=== PATIENT | male | born 1955 | race Caucasian/White ===

== ENCOUNTER 2016-11-13 12:46 | Observation (INO) | payer OTHER ==
--- NOTE | ~2016-11-13 | CO ---
Unit #: [id number] #: [id number] Patient: DONNA VELA [id number] [address] [place], [place] [address] [id number] I MR#: [id number] NAME: DONNA VELA ROOM: 574 Age: 60 Sex: M Admission Date: 11/13/2016 : 1955 Attending Physician: Nai Keenna M.D. Primary Care Physician: No Primary Care Physician Consultation Date: 11/13/2016 CONSULTATION REPORT REASON FOR CONSULTATION Upper GI bleed. HISTORY Mr. Vela is a 60-year-old white gentleman who has multiple medical problems as enumerated under the past medical history. The patient presented with coffee ground emesis, followed by black tarry stool that started yesterday. He also complains of some postural (1) dizziness, and palpitations. He is on long-term Plavix due to recurrent WA and stent closure. There is no history of true syncope. The patient denies any fever, chills or rigors. He has never had any examination of his upper GI tract or colon in the past. PAST MEDICAL HISTORY Significant for history of hypertension, coronary artery disease, diabetes. The patient has had multiple MIs and coronary stent placements and occlusions on long-term Plavix. PAST SURGICAL HISTORY Previous surgeries included a PTCA and cardiac stent placement. MEDICATIONS His medications prior to admission included the following: Plavix, Singulair, DuoNeb, vitamins, Symbicort, Norvasc, aspirin, Cialis, lisinopril, hydrochlorothiazide, and p.o. glitazone, Lipitor and metoprolol. SOCIAL HISTORY He lives at home with his . Does not smoke or drink alcohol. FAMILY HISTORY Significant for coronary artery disease in both parents. REVIEW OF SYSTEMS A detailed review of organ system does not reveal any recent weight loss. No history of fevers, chills or rigors. No history of headaches, seizures, chest pain or syncope. No history of cough or expectoration. No history of dysuria, hematuria or pyuria. No history of focal seizures or extreme weakness. PHYSICAL EXAMINATION GENERAL: He is alert, oriented, comfortable and appears obese. VITAL SIGNS: Are stable with a temperature of 97.8, pulse 91 per minute, respiratory rate 17, and blood pressure is 121/60. He weighs 300 pounds. Unit #: [id number] #: [id number] Patient: DONNA VELA His baseline weight in the past has been recorded as around 270 to 280 pounds in the past. HEENT: He has a no pallor, icterus, lymphadenopathy or peripheral edema. CARDIOVASCULAR: Normal heart sounds. No murmurs on auscultation. LUNGS: Bilaterally symmetric diminished air entry. ABDOMEN: Obese, firm and nontender. Liver and spleen are not palpable. Any kind of meaningful palpation is difficult to do (2) . Bowel sound are dillon. Hernia sites are also normal. DIAGNOSTIC STUDIES LABORATORY EVALUATION: Shows a hemoglobin of 13.3, but normal white count and platelet count. INR is 1.0. Serum chemistry shows a BUN and creatinine of 66 and 1.6 and calcium of 10.3. LFT is otherwise normal. Patient with history suggestive of upper GI bleed. His BUN and creatinine ratio is elevated and it is possible that the drop in hemoglobin will be in apparent in the next few hours after hemodilutions occurred. An upper endoscopy, however, indicated to be scheduled shortly. Pros and cons of procedure, potential risk of complication were discussed with the patient and his family and they seem reassured. Thank you very much for asking me to see this pleasant gentleman. Dictated by... Charlene Gupta TD: 11/14/2016 06:57 JOB #: [id number] CONSULTATION REPORT X Saulo Gil MD X CONSULTATION REPORT
--- NOTE | ~2016-11-13 | HP ---
Unit #: [id number] #: [id number] Patient: DONNA VELA [id number] [address] [address] [id number] E MR#: [id number] NAME: DONNA VELA ROOM: Age: 60 Sex: M Admission Date: 11/13/2016 : 1955 Attending Physician: Vilma Mares M.D. HISTORY AND PHYSICAL CHIEF COMPLAINT Coffee-ground emesis. HISTORY OF PRESENT ILLNESS The patient is a 60-year-old male with a history of diabetes, coronary artery disease, status post stents, on aspirin and Plavix, and morbid obesity, brought to the emergency room complaining of coffee-ground emesis since last midnight. The patient stated that he has coffee-ground emesis associated with dark tarry stool that started last midnight. The patient also complains of dizziness, confusion, and palpitations. The patient has been on Plavix for many years secondary to recurrent MIs with stent closures. The patient denies any fever, chills, or any trauma. The patient has never had any upper or lower endoscopies in the past. PAST MEDICAL HISTORY 1. Hypertension. 2. Coronary artery disease. 3. Diabetes. PAST SURGICAL HISTORY Cardiac stents. ALLERGIES No known drug allergies. HOME MEDICATIONS 1. Pioglitazone. 2. Lisinopril and hydrochlorothiazide. 3. Lipitor. 4. Metoprolol. 5. Plavix. 6. Singulair. 7. DuoNeb. 8. Vitamin. 9. Symbicort. 10. Norvasc. 11. Aspirin. 12. Cialis. SOCIAL HISTORY He lives with his . Denies any history of tobacco, alcohol, or any illicit drug abuse. FAMILY HISTORY Unit #: [id number] #: [id number] Patient: DONNA VELA Coronary artery disease in the parents. REVIEW OF SYSTEMS A 14-point review of systems was performed and only pertinent positive findings are described above. The remaining are negative. PHYSICAL EXAMINATION GENERAL: Patient is alert, awake, oriented, and not in acute distress. VITAL SIGNS: Temperature 97.6, pulse 93, respiratory rate 16, blood pressure 112/65, and saturating 94% on room air. HEENT: Head atraumatic, normocephalic. Pupils equal, round, and reactive to light and accommodation. Extraocular movements are intact. Dry mucous membranes. NECK: Supple. No JVD. LUNGS: Clear to auscultation bilaterally. No rhonchi, no wheezing. HEART: Regular rate and rhythm. ABDOMEN: Soft. Positive bowel sounds. Positive for morbid obesity. EXTREMITIES: No cyanosis, no clubbing. NEUROLOGIC: Alert, awake, and oriented. No gross focal motor deficit. DIAGNOSTIC STUDIES LABORATORY: Glucose 211, BUN 66, creatinine 1.1, sodium 137, potassium 4.1, chloride 99, bicarb 30, calcium 10.3, total protein 7.4, AST 23, ALT 25, and alkaline phosphatase 43. INR is 1. WBC 7.2, hemoglobin 13.3, hematocrit 39.3, and platelets 231,000. CARDIOLOGY: EKG is missing. ASSESSMENT 1. Hematemesis. 2. Gastrointestinal bleed with melena. 3. Diabetes mellitus. 4. Coronary artery disease, status post stents. PLAN Admit patient to observation with telemetry. Continue with Protonix 40 mg b.i.d. IV and will have GI for a scope. Hold aspirin and Plavix today. Repeat the labs again in the morning. Further recommendations will follow. Dictated by Charlene Dowd TD: 11/13/2016 14:03 JOB #: [id number] HISTORY AND PHYSICAL X X HISTORY AND PHYSICAL
--- NOTE | ~2016-11-13 | DS ---
Unit #: [id number] #: [id number] Patient: DONNA VELA [id number] [address] [address] [id number] I MR#: [id number] NAME: DONNA VELA ROOM: 574 Age: 60 Sex: M Admission Date: 11/13/2016 : 1955 Discharge Date: 11/15/2016 Attending Physician: Ervin Beaver M.D. Primary Care Physician: Primary Care Physician No DISCHARGE SUMMARY DISCHARGE DIAGNOSES 1. Hematemesis with likely gastrointestinal bleed, status post esophagogastroduodenoscopy and endoscopy by Dr. Gil without evidence of active bleeding. 2. Type 2 diabetes. 3. History of coronary artery disease. 4. Chronic obstructive pulmonary disease without acute exacerbation. 5. Essential hypertension. PROCEDURES The patient had EGD on 11/13/[address] Gil and colonoscopy on 11/15/2016. DIAGNOSTIC STUDIES IMAGING STUDIES: Consist of none during this admission. LABORATORY RESULTS: Includes BMP; glucose 187, BUN 45, creatinine 1.0, sodium 140, potassium 3.7, chloride 104, CO2 of 29, calcium 9.0. CBC; WBC of 6.7, RBC 3.07, hemoglobin 10.3, hematocrit 30.2, MCV is 98.3, MCH is 33.5, MCHC is 34.1, RDW is 14.4, platelets are 142, and MPV 8.4. CONSULTANTS Dr. Gil with Gastroenterology. HOSPITAL COURSE The patient is a 60-year-old male with past medical history of type 2 diabetes; coronary artery disease, status post stent placement, on aspirin and Plavix; morbidly obese, presented to the emergency department for coffee ground emesis, which started midnight on the day of admission. The patient states that he has had coffee ground emesis associated with black tarry stool, that started the midnight prior to admission. The patient also had complained of dizziness, confusion, palpations. The patient has been on Plavix The patient has not had any upper or lower endoscopy in the past. The patient was admitted for likely upper GI bleed with hematemesis, was given Protonix IV. Held aspirin and Plavix. Dr. Gil with Gastroenterology was consulted to did the same day upper endoscopy, where he found portal hypertensive gastropathy involving the fundic mucosa primarily and the reticular appearance of the mucosa of fundus, moderate diffuse erosive duodenitis involving the duodenal bulb. The rest of the exam up to the third part of duodenum was normal. A biopsy was obtained from the antrum and which was negative for CLOtest. The following day, the patient had colonoscopy, where Dr. Gil has seen Unit #: [id number] #: [id number] Patient: DONNA VELA two polyps, which were removed. The patient at this time is stable with regards to the patient's GI bleed, this is quite stable. His hemoglobin when the patient came in was at 13.3 and right now it is 10.3 likely due to delusional effect. Hematocrit came in at 39.3, discharge at 30.2. Due to the patient's resolved symptoms of anemia and a stable H and H with no acute GI bleeding found on endoscopy, the patient will be discharged home in stable condition. The patient is to follow up with family doctor within 1 to [address] Gil. Discharge diet is heart healthy with consistent carb diet. DISCHARGE MEDICATIONS Includes Symbicort one puff inhaled b.i.d., DuoNeb inhaled every 4 hours as needed for shortness of breath and/or wheezing, lisinopril with hydrochlorothiazide 20 with 12.5 mg one tablet orally daily, pioglitazone 45 mg orally daily, atorvastatin 80 mg orally daily, Norvasc 10 mg orally daily, metoprolol 10 mg orally daily, Singulair 10 mg orally daily. Aspirin and Plavix may be resumed. Aspirin 81 mg orally daily may be resumed tomorrow, 11/16/2016, Plavix 75 mg orally daily may be resumed tomorrow, 11/16/[address] Gil's recommendations. Protonix 40 mg orally b.i.d., vitamin D 1000 units orally daily. Dictated by.Charli. Kenneth Stinson PA-C for Charlene Correia/lashonda TD: 11/18/2016 12:48 JOB #: [id number] DISCHARGE SUMMARY X X DISCHARGE SUMMARY
--- NOTE | ~2016-11-13 | OR ---
Unit #: [id number] #: [id number] Patient: DONNA VELA [id number] [address] [address] [id number] I MR#: [id number] NAME: DONNA VELA ROOM: 574 Date of Procedure: 11/15/2016 Admission Date: 11/13/2016 Surgeon: Saulo Gil M.D. : 1955 Attending Physician: Ervin Beaver M.D. Primary Care Physician: Primary Care Physician No OPERATIVE REPORT ATTENDING PHYSICIAN Dr. Ervin Beaver. PREOPERATIVE DIAGNOSES The patient presented with history of hematemesis and melena as well as anemia of acute gastrointestinal blood loss. PROCEDURES PERFORMED Push enteroscopy to proximal jejunum as well as colonoscopy and polypectomy. POSTOPERATIVE DIAGNOSES For push enteroscopy: The patient had mild antral gastritis. This has been observed earlier, otherwise examination was normal up to proximal jejunum. No angiodysplasias or potential source of blood loss were seen. For upper endoscopy: The patient had evidence of distal erosive esophagitis as well as antral gastritis; however, no biopsies were obtained as these has been done before. For colonoscopy: 1. The patient had two sessile polyps, one each in the transverse and descending colon. These were 6 mm and 8 mm each. Both were removed using snare polypectomy. 2. Moderate sigmoid and descending colon diverticulosis. 3. Rest of the examination up to cecum and terminal ileum was normal. The quality of the prep was excellent. RECOMMENDATIONS The patient can be discharged home from GI standpoint on omeprazole or pantoprazole. The results of the polyp histology will be communicated to the patient. He should stay on pantoprazole at least once a day on daily basis. He can restart his Plavix tomorrow. SEDATION USED MAC. DESCRIPTION OF PROCEDURE Following detailed explanation of the potential risks and complications of an upper endoscopy, push enteroscopy, and colonoscopy namely perforation, bleeding, and complication related to sedation, the patient was brought to GI lab and laid in the left lateral decubitus position. A pediatric Unit #: [id number] #: [id number] Patient: DONNA VELA colonoscope was used for push enteroscopy. Lubricated tip of the Olympus video upper endoscope was inserted through the oral cavity into the esophagus. The entire esophageal mucosa was examined. The patient was noted to have distal erosive esophagitis of grade 2 severity. The scope was then advanced into the gastric cavity and the latter was insufflated. Mucosa of the fundus, body, and antrum was examined and prepyloric antral erosive gastritis was also noted. The changes were diffuse in this area. Pylorus was intubated with visualization of the normal duodenal bulb. The scope was then navigated from the duodenum into the proximal jejunum and couple of jejunal loops were intubated. No angiodysplasias were seen. The scope was then withdrawn in the antrum and retroverted, whereupon incisura, cardia, and greater curve was examined and no additional findings were found. The scope was then withdrawn in the distal esophagus. The entire esophageal mucosa was examined all the way up to pharynx. No additional findings were noted. The examination table was then turned by 180 degrees and the patient positioned for a colonoscopy. A digital rectal examination was performed, which was normal. Lubricated tip of the Olympus video colonoscope was inserted through the anus and advanced under direct vision. The scope was advanced past rectosigmoid into descending colon. Multiple medium-sized diverticula were seen in this area. The scope tip was then navigated all the way up to cecum with visualization of the ileocecal valve and the appendiceal orifice. Preparation was excellent with good visualization and photodocumentation was obtained. Last few inches of the terminal ileum were also visualized after intubation of the ileocecal valve and appeared normal. Successive segments of the colonic mucosa were examined upon withdrawal. Two sessile polyps were noted, one each in the transverse and descending colon. These were 6 and 8 mm each. Both were removed using snare polypectomy. They were retrieved and sent for histology. No additional polyps were noted. Other than the left-sided diverticulosis, no other abnormalities were found. The patient did not have any hemorrhoids at anal verge. The scope was then withdrawn and the patient returned to the recovery area. He tolerated the procedure without any postprocedure complications. Dictated byCharlene Newsome TD: 11/15/2016 17:12 JOB #: [id number] OPERATIVE REPORT X Saulo Gil MD PROCEDURE OPERATIVE NOTE
--- NOTE | ~2016-11-13 | EKG ---
PATIENT: DONNA VELA UNIT #: [id number] Ventricular Rate: 91 BPM Atrial Rate: 91 BPM P-R Interval: 158 ms QRS Duration: 100 ms Q-T Interval: 374 ms QTC Calculation(Bezet): [address]: 45 degrees Calculated R [address]: -32 degrees Calculated T [address]: 9 degrees Diagnosis Line: Sinus rhythm with Premature ventricular complexes Diagnosis Line: Left axis deviation Diagnosis Line: Abnormal ECG Diagnosis Line: When compared with ECG of 13-AUG-2011 13:00, Diagnosis Line: Premature ventricular complexes are now Present Diagnosis Line: QT has lengthened Diagnosis Line: Confirmed by ROBERT LLOYD MD ([id number]) on 11/13/2016 Diagnosis Line: 6:22:47 PM INTERPRETING MD: GABINO BAKER
--- NOTE | ~2016-11-13 | OR ---
Unit #: [id number] #: [id number] Patient: DONNA VELA [id number] [place], [place] [address] [id number] I MR#: [id number] NAME: DONNA VELA ROOM: 574 Date of Procedure: 11/13/2016 Admission Date: 11/13/2016 Surgeon: Saulo Gil M.D. : 1955 Attending Physician: Ervin Beaver M.D. Primary Care Physician: Primary Care Physician No OPERATIVE REPORT PRIMARY CARE PHYSICIAN None. PREOPERATIVE DIAGNOSES Presumed upper gastrointestinal bleed. The patient has had a history of vomiting blood and having tarry black stools. PROCEDURES PERFORMED Upper gastrointestinal endoscopy and biopsy. POSTOPERATIVE DIAGNOSES 1. Distal erosive esophagitis. 2. Changes of portal hypertensive gastropathy involving the fundic mucosa. These were primarily in the reticular appearance of the mucosa of the fundus. 3. Moderate diffuse erosive duodenitis involving the duodenal bulb. 4. Rest of the examination up to third part of duodenum was normal. Biopsies obtained from the antrum for CLOtest. RECOMMENDATIONS 1. Monitor hemoglobin and hematocrit. Consider need for colonoscopy depending upon the hemoglobin drop tomorrow. 2. Discontinue Protonix infusion after the current bag is finished or runs out. 3. Protonix 40 mg p.o. b.i.d. 4. Healthy heart diet. Repeat CBC and CMP in the morning. SEDATION USED MAC. DESCRIPTION OF PROCEDURE Following detailed explanation of potential risks and complications of an upper endoscopy and a colonoscopy, namely perforation, bleeding, and complications related to sedation, the patient was brought to GI lab and laid in the left lateral decubitus position. Lubricated tip of the Olympus video upper endoscope was passed through the bite block into the proximal esophagus under direct vision. The entire esophageal mucosa was examined. The patient was noted to have distal confluent ulcerative esophagitis of grade 2 severity. The scope was then advanced into the gastric cavity and the latter was insufflated. Mucosa of the fundus, body, and antrum was examined. Changes of portal hypertensive gastropathy Unit #: [id number] #: [id number] Patient: DONNA VELA were noted in the fundic mucosa, which was edematous with reticular appearance of the mucosa; however, no varices were seen. The prepyloric antral area appeared normal. Pylorus was intubated with visualization of the duodenal bulb. The latter was noted to have moderate and diffuse erosive duodenitis. Second and third part of duodenum were normal. Upon withdrawal and retroflexion, incisura, cardia, and greater curve examined and no additional findings noted. The scope was then withdrawn in the distal esophagus. The biopsy obtained from the antrum for CLOtest. The scope was then withdrawn in the distal esophagus. The entire esophageal mucosa was examined all the way up to pharynx. No additional findings noted. The patient tolerated the procedure without any postprocedure complications. Dictated by... Charlene Gupta TD: 11/14/2016 06:17 JOB #: [id number] OPERATIVE REPORT X Saulo Gil MD X PROCEDURE OPERATIVE NOTE
--- NOTE | ~2016-11-13 | BMI ---
[facility] Nutrition Therapy DATE: 11/14/16 Patient: DONNA VELA Physician: JOSE Address: [facility] Room/Bed: [address] [place] [address], Zip: [place] [address] Admit Date: 11/13/16 Date of : [birth year] Height: 5 8 Weight: 306 139 HIGH BMI NOTE: DX: 60 y/o male admitted with coffee ground emesis ANTHROPOMETRICS: Ht: 68", Wt: 139 kg, BMI: 45 DIET: Clear liquid INTERVENTION: Advance diet as tolerated, meds/fluids per MD RECOMMENDATIONS: Advance diet as tolerated to healthy heart/consistent carb due to PMH and morbid obesity, to promote a gradual weight loss towards a healthy BMI range. Respectfully, Maria Jaffe RD, LD Food and Nutritional Services [facility] cc: client file
[2016-11-13 12:16] LABS: BASOPHIL# 0.1 X10e3 (0-0.3); BASOPHIL% 0.7 % (0-2.5); EOSINOPHIL% 0.5 % (0.0-7.0); HEMATOCRIT 39.3 % (38.0-50.0); HEMOGLOBIN 13.3 gm/dL (13.0-16.0); LYMPHOCYTE# 1.9 X10e3 (1.0-3.5); LYMPHOCYTE% 26.7 % (17.0-45.0); MEAN CELL VOLUME 97.6 FL (83-96); MEAN CORPUSCULAR HEMOGLOBIN 33.1 PG (28-34); MEAN CORPUSCULAR HGB CONC 33.9 g/dL (30-36); MEAN PLATELET VOLUME 8.6 FL (6.5-11.5); MONOCYTE# 0.3 X10e3 (0-1.0); MONOCYTE% 4.4 % (3.0-12.0); NEUTROPHIL# 4.9 X10e3 (1.5-7.1); NEUTROPHIL% 67.7 % (40-75); PLATELET COUNT 231 X10e3 (140-420); RED BLOOD COUNT 4.02 X10e (3.90-5.60); RED CELL DISTRIBUTION WIDTH 14.3 % (11.0-15.5); WHITE BLOOD COUNT 7.2 X10e3 (4.0-10.5)
[2016-11-13 12:18] LABS: DIFF IND NO
[2016-11-13 12:29] LABS: PARTIAL THROMBOPLASTIN TIME 22.8 SECONDS (23.5-31.3)
[2016-11-13 12:45] LABS: ALBUMIN SERUM 3.7 g/dL (3.5-5.0); ALKALINE PHOSPHATASE 43 U/L (32-92); ALT (SGPT) 25 U/L (10-40); AST (SGOT) 23 U/L (10-42); BILIRUBIN, DIRECT 0.1 mg/dL (0.0-0.2); BILIRUBIN,TOTAL 1.1 mg/dL (0.2-2.0); BLOOD UREA NITROGEN 66 mg/dL (9-23); CALCIUM SERUM 10.3 mg/dL (8.4-10.2); CARBON DIOXIDE 30 mmol/L (22-31); CHLORIDE 99 mmol/L (100-111); CREATININE SERUM 1.1 mg/dL (0.6-1.4); GLOM FILT RATE Estimated ABOVE60 mL/min (>60); GLUCOSE FASTING 211 mg/dL (70-110); POTASSIUM 4.1 mmol/L (3.5-5.1); PROTEIN TOTAL SERUM 7.4 g/dL (6.0-8.3); SODIUM 137 mmol/L (135-145)
[~2016-11-13 12:46] MED LIST: ALBUTEROL17 G1 IH; ASPIRIN81 M2 PO; ATORVASTATIN CA80 MG PO; CIALIS5 MG PO; CLOPIDOGREL75 MG PO; ECOTRIN81 M1 PO; GLIMEPIRIDE2 MG PO; GLUCOPHAGE500 MG PO; IPRAT-ALBUT 0.5-3 ML INH; LISINOPRIL-HCTZ1 T14 PO; METOPROLOL SUC100 MG PO; NORVASC10 MG PO; PIOGLITAZONE45 MG PO; PLAVIX PO; PREDNISONE PO; PROVENTIL17 GM IH; SIMVASTATIN80 MG PO; SINGULAIR PO; SYMBICORT INH; TOPROL XL100 MG PO; VITAMIN D1000 UNI1 PO; ZESTORETIC 20/11 TAB PO; [UNRECOGNIZED DRUG - REMARK]
[2016-11-13 14:32] LABS: URINE SOURCE CLEAN CATCH
[2016-11-13 14:37] LABS: URINE APPEARANCE CLEAR; URINE BILIRUBIN NEG (NEG); URINE BLOOD NEG (NEG); URINE COLOR YELLOW; URINE GLUCOSE NEG (NEG); URINE KETONE NEG (NEG); URINE LEUKOCYTE ESTERASE NEG (NEG); URINE NITRATE NEG (NEG); URINE PROTEIN NEG (NEG); URINE SPECIFIC GRAVITY 1.021 (1.003-1.035); URINE UROBILINOGEN 0.2 MG/DL (NEG)
[2016-11-13 14:41] LABS: CULTURE INDICATED? NO
[2016-11-14 05:27] LABS: BASOPHIL% 0.7 % (0-2.5); EOSINOPHIL# 0.1 X10e3 (0-0.7); EOSINOPHIL% 1.8 % (0.0-7.0); LYMPHOCYTE# 1.7 X10e3 (1.0-3.5); LYMPHOCYTE% 23.4 % (17.0-45.0); MEAN CELL VOLUME 97.4 FL (83-96); MEAN CORPUSCULAR HGB CONC 34.9 g/dL (30-36); MEAN PLATELET VOLUME 8.7 FL (6.5-11.5); MONOCYTE# 0.6 X10e3 (0-1.0); MONOCYTE% 7.6 % (3.0-12.0); NEUTROPHIL% 66.5 % (40-75); PLATELET COUNT 155 X10e3 (140-420); RED BLOOD COUNT 3.18 X10e (3.90-5.60); RED CELL DISTRIBUTION WIDTH 14.4 % (11.0-15.5); WHITE BLOOD COUNT 7.5 X10e3 (4.0-10.5)
[2016-11-14 05:29] LABS: DIFF IND NO; HEMOGLOBIN 10.8 gm/dL (13.0-16.0)
[2016-11-14 05:56] LABS: BLOOD UREA NITROGEN 45 mg/dL (9-23); CARBON DIOXIDE 29 mmol/L (22-31); CHLORIDE 104 mmol/L (100-111); GLOM FILT RATE Estimated ABOVE60 mL/min (>60); GLUCOSE FASTING 187 mg/dL (70-110); POTASSIUM 3.7 mmol/L (3.5-5.1); SODIUM 140 mmol/L (135-145)
[2016-11-14] MEDS ORDERED: PROTONIX PO (11:46)
[2016-11-14 12:30] LABS: HEMATOCRIT 30.2 % (38.0-50.0); HEMOGLOBIN 10.3 gm/dL (13.0-16.0); MEAN CELL VOLUME 98.3 FL (83-96); MEAN CORPUSCULAR HEMOGLOBIN 33.5 PG (28-34); MEAN CORPUSCULAR HGB CONC 34.1 g/dL (30-36); MEAN PLATELET VOLUME 8.4 FL (6.5-11.5); RED BLOOD COUNT 3.07 X10e (3.90-5.60); RED CELL DISTRIBUTION WIDTH 14.4 % (11.0-15.5); WHITE BLOOD COUNT 6.7 X10e3 (4.0-10.5)
[2016-11-15] MEDS ORDERED: CLOPIDOGREL75 MG PO (15:04)
== END 2016-11-15 15:44 | disposition home or self-care (01) ==
LOC: CED 12:46 → CEDOF 13:59 → C5C 16:32
PROVIDERS: Emergency Medicine; Internal Medicine; Internal Medicine Gastroenterology
DX: K92.0 Hematemesis (principal); D62 Acute posthemorrhagic anemia; K20.8 Other esophagitis; K76.6 Portal hypertension; K31.89 Other diseases of stomach and duodenum; K29.80 Duodenitis without bleeding; K92.1 Melena; D12.3 Benign neoplasm of transverse colon; D12.4 Benign neoplasm of descending colon; K57.30 Diverticulosis of large intestine without perforation or abscess without bleeding; I10 Essential (primary) hypertension; I25.10 Atherosclerotic heart disease of native coronary artery without angina pectoris; Z95.5 Presence of coronary angioplasty implant and graft; E11.9 Type 2 diabetes mellitus without complications
CPT/HCPCS: 36415; 80048; 80076; 81003; 82947; 85025; 85027; 85610; 85730; 86850; 86900; 86901; 87077; 88305; 93005; 94640; 94664; 94760; 96361; 96374; 96376; 99285; C9113; G0378; J1815; J2250; J3490

== ENCOUNTER 2017-04-13 15:13 | Emergency (ER) | payer OTHER ==
--- NOTE | ~2017-04-13 | CT122 ---
[facility] A Service of [facility] RADIOLOGY TEXT RESULTS PATIENT: DONNA VELA LOCATION: SED : 53 UNIT #: [id number] AGE: [address]: Migdalia Feng SEX: M ORDER DR: [id number] [address] [address] [id number] MR#: [id number] Acc #: [id number] NAME: DONNA VELA : 1955 SEX: M STUDY DATE/TIME: 04/13/2017 17:35 UNIT: SED ROOM: STUDY DESCRIPTION: CT Thoracic Spine Wo Cont Attending Physician: Migdalia Feng Pa-C Ordering Physician: Migdalia Feng Pa-C Primary Care Physician: Primary Care Physician No MEDICAL IMAGING REPORT This report is preliminary unless electronic signature is present. EXAM CT of the thoracic spine without contrast dated 04/13/2017 COMPARISON Plain forms thoracic spine dated 04/13/2017. HISTORY Abnormal plain film with compression fractures. Mid back pain for 2 months, worse in the last [address] of the thoracic spine was obtained without contrast in the axial plane followed by sagittal and coronal reformats. This CT examination was performed with one or more of the following radiation dose reduction techniques: automatic exposure control, adjustment of mA and/or kV according to patient size, and iterative reconstruction. Compression fractures are noted at T5 and T7 vertebral bodies with maximal vertebral body height loss of 50% to 55% at T5 and 70% to 75% at T7. These images are more sensitive and specific when compared to the plain films. No retropulsion of fragments are noted into the canal. No obvious acute fracture line or displaced fragments are seen. It appears to be predominantly chronic. No significant paraspinal hematoma is seen. Degenerative mild facet changes are noted. No focal significant disc herniation or canal stenosis is noted in the thoracic spine. There are mild facet changes and costovertebral changes noted particularly at T7-8. There is mild bony irregularity noted along the posterior right eighth rib at the costal vertebral joint. It has a chronic appearance and could be related to old trauma. Surrounding lungs do not demonstrate any significant abnormality. IMPRESSION 1. Compression fractures are noted at T5 with 50% to 55% maximal mid STS. [facility] A Service of [facility] & [facility] RADIOLOGY TEXT RESULTS PATIENT: DONNA VELA LOCATION: [facility] : 53 UNIT #: [id number] AGE: [address]: Migdalia Feng PAC SEX: M ORDER DR: vertebral body height loss and at T7 with 70% to 75% maximal mid vertebral body height loss. These appear to be predominantly chronic without any obvious fracture lines, displaced fragments or adjacent surrounding hematoma. MRI of the thoracic spine can be considered for management purposes to evaluate for bone edema to suggest an acute on chronic component. 2. The upper thoracic vertebral bodies including T2 do not demonstrate any compression deformity. Minimal superior endplate compression deformity of T7 is suspected based on the reformats. 3. There is mild bony irregularity noted in the posterior segment of the right eighth rib close the costal vertebral joint. It is likely related to old trauma. 4. Mild facet changes are noted at multiple levels particularly in bilateral T7-8 and in costovertebral joints particularly right T7-8 joints. Chronic. Dictated by... Junito Pan M.D. THIS IS AN ELECTRONICALLY VERIFIED REPORT Junito Pan M.D. at 04/14/2017 7:33 PM CPR/lonnie TD: 04/14/2017 07:25 JOB #: [id number] MEDICAL IMAGING REPORT Page 1 of 1
--- NOTE | ~2017-04-13 | CR243 ---
[facility] A Service of [facility] RADIOLOGY TEXT RESULTS PATIENT: DONNA VELA LOCATION: SED : 54 UNIT #: [id number] AGE: [address]: Migdalia Feng SEX: M ORDER DR: [id number] [place] [id number] E MR#: [id number] Acc #: [id number] NAME: DONNA VELA : 1955 SEX: M STUDY DATE/TIME: 04/13/2017 16:02 UNIT: SED ROOM: STUDY DESCRIPTION: CR Thoracic Spine 3 Views Attending Physician: Migdalia Feng Pa-C Ordering Physician: Migdalia Feng Pa-C Primary Care Physician: Primary Care Physician No MEDICAL IMAGING REPORT This report is preliminary unless electronic signature is present. EXAM Thoracic spine series, 04/13/2017 COMPARISON None. HISTORY Mid back pain, cough which is worse in the past 2 weeks. It has been going on for 2 months. Back pain and high blood pressure. FINDINGS 3 views of the thoracic spine were obtained. There appear to be two compression deformities in the thoracic spine, probably involving T7 and T5 with maximal vertebral body height loss of about 80% at T7 and 60-65% at T5. A compression deformity at the level of T12 vertebral body cannot be excluded based on the lateral view. It is not clearly seen on the frontal view. The images are limited at this level. There are no prior thoracic spine studies but a CT angiogram head and neck from 08/13/2011 did not demonstrate any severe compression. Large calcified lymph nodes are noted in the right superior mediastinum and in the right hilum suggestive of old granulomatous disease. There is diffuse bony osteopenia. Dictated by... Junito Pan M.D. THIS IS AN ELECTRONICALLY VERIFIED REPORT Junito Pan M.D. at 04/14/2017 7:33 PM CPR/ljyelena TD: 04/14/2017 04:32 [facility] A Service of [facility] RADIOLOGY TEXT RESULTS PATIENT: DONNA VELA LOCATION: SED : 54 UNIT #: [id number] AGE: [address]: Migdalia Feng PAC SEX: M ORDER DR: ANABEL #: [id number] MEDICAL IMAGING REPORT Page 1 of 1
--- NOTE | ~2017-04-13 | CR63 ---
[facility]. [facility] A Service of [facility] RADIOLOGY TEXT RESULTS PATIENT: DONNA VELA LOCATION: SED : 54 UNIT #: [id number] AGE: [address]: Migdalia Feng SEX: M ORDER DR: [id number] [place] [id number] E MR#: [id number] Acc #: [id number] NAME: DONNA VELA : 1955 SEX: M STUDY DATE/TIME: 04/13/2017 16:02 UNIT: SED ROOM: STUDY DESCRIPTION: CR Chest 2 View Attending Physician: Migdalia Feng Pa-C Ordering Physician: Migdalia Feng Pa-C Primary Care Physician: Primary Care Physician No MEDICAL IMAGING REPORT This report is preliminary unless electronic signature is present. EXAM Two-view chest HISTORY Mid-back pain, cough, symptoms for over 2 months but worse over the last 2 weeks. COMPARISON 08/13/2011 FINDINGS 2 views of the chest demonstrates coarse parenchymal markings suggesting underlying interstitial disease and fibrosis. No acute airspace disease or consolidation. No effusions. Right hilar and paratracheal calcifications compatible with old granulomas disease. Mild cardiomegaly and aortic atherosclerotic changes. There are compression fractures T5 and T7 with greater than 50% loss of vertebral body height of both of these fractures. This appears superimposed on osteopenia and these may represent osteoporotic compression fractures. Correlate for risk factors. Minimal degenerative changes noted within the remainder of the thoracic spine. IMPRESSION 1. Diffuse prominence of the pulmonary interstitium with a reticular pattern may reflect chronic interstitial disease and fibrosis. Correlate with history. There is also evidence of old granulomas disease. Clearly no dense airspace disease or consolidation. 2. T5 and T7 thoracic compression fractures with greater than 50% loss of the mid and anterior vertebral body height at both of these levels. I suspect these represent osteoporotic compression fractures as this appears superimposed on osteopenia. Again correlate for risk factors. [facility] A Service of [facility] RADIOLOGY TEXT RESULTS PATIENT: DONNA VELA LOCATION: SED : 54 UNIT #: [id number] AGE: [address]: Migdalia Feng PAC SEX: M ORDER DR: Dictated by... Mary Burk M.D. THIS IS AN ELECTRONICALLY VERIFIED REPORT Mary Burk M.D. at 04/14/2017 7:15 AM John TD: 04/14/2017 04:21 JOB #: [id number] MEDICAL IMAGING REPORT Page 1 of 1
[~2017-04-13 15:13] MED LIST changes: +PROTONIX PO
[2017-04-13] MEDS ORDERED: LASIX (15:58)
[2017-04-13] MEDS ORDERED: ALDACTONE (15:59)
[2017-04-13] MEDS ORDERED: LISINOPRIL (16:00)
[2017-04-13] MEDS ORDERED: METFORMIN (16:00)
[2017-04-13 16:09] LABS: URINE SOURCE CLEAN CATCH
[2017-04-13 16:11] LABS: BASOPHIL# 0.1 X10e3 (0-0.3); BASOPHIL% 1.1 % (0-2.5); EOSINOPHIL# 0.4 X10e3 (0-0.7); HEMATOCRIT 38.1 % (38.0-50.0); HEMOGLOBIN 12.5 gm/dL (13.0-16.0); LYMPHOCYTE# 1.3 X10e3 (1.0-3.5); LYMPHOCYTE% 25.3 % (17.0-45.0); MEAN CELL VOLUME 82.9 FL (83-96); MEAN CORPUSCULAR HEMOGLOBIN 27.2 PG (28-34); MEAN CORPUSCULAR HGB CONC 32.8 g/dL (30-36); MONOCYTE# 0.3 X10e3 (0-1.0); MONOCYTE% 6.5 % (3.0-12.0); NEUTROPHIL% 59.1 % (40-75); PLATELET COUNT 178 X10e3 (140-420); RED BLOOD COUNT 4.59 X10e (3.90-5.60); RED CELL DISTRIBUTION WIDTH 17.7 % (11.0-15.5)
[2017-04-13 16:12] LABS: URINE APPEARANCE CLEAR; URINE BILIRUBIN NEG (NEG); URINE BLOOD NEG (NEG); URINE COLOR YELLOW; URINE GLUCOSE 100 MG/DL (NORM); URINE KETONE NEG (NEG); URINE LEUKOCYTE ESTERASE NEG (NEG); URINE NITRATE NEG (NEG); URINE PROTEIN NEG (NEG); URINE UROBILINOGEN 0.2 MG/DL (NORM)
[2017-04-13 16:14] LABS: MICRO INDICATED? NO
[2017-04-13 16:15] LABS: DIFF IND NO
[2017-04-13 16:29] LABS: ALBUMIN SERUM 3.9 g/dL (3.5-5.0); BILIRUBIN, DIRECT 0.1 mg/dL (0.0-0.2); BILIRUBIN,INDIRECT 0.7 mg/dL (0.0-0.9); BILIRUBIN,TOTAL 0.8 mg/dL (0.2-2.0); CALCIUM SERUM 8.6 mg/dL (8.4-10.2); GLOM FILT RATE Estimated 80.3 mL/min (>60); POTASSIUM 3.9 mmol/L (3.5-5.1); PROTEIN TOTAL SERUM 7.7 g/dL (6.0-8.3)
== END 2017-04-13 19:17 | disposition home or self-care (01) ==
LOC: SED 15:13
PROVIDERS: Physician Assistant Medical
DX: S22.059A Unspecified fracture of T5-T6 vertebra, initial encounter for closed fracture (principal); I25.10 Atherosclerotic heart disease of native coronary artery without angina pectoris; E11.9 Type 2 diabetes mellitus without complications; I11.0 Hypertensive heart disease with heart failure; I50.9 Heart failure, unspecified; W19.XXXA Unspecified fall, initial encounter; Z79.82 Long term (current) use of aspirin; Z79.899 Other long term (current) drug therapy; Z79.4 Long term (current) use of insulin
CPT/HCPCS: 36415; 71020; 72072; 72128; 80048; 80076; 81003; 85025; 99284

== ENCOUNTER → 2017-05-05 | Outpatient (CLI) | payer MEDICARE ==
[~2017-05-05] MED LIST changes: +ALDACTONE; +ALDACTONE25 MG PO; +FUROSEMIDE40 MG PO; +LASIX; +LEVEMIR100 UNITS/ SUBQ; +LISINOPRIL; +METFORMIN; +MONTELUKAST SOD10 MG PO; +POTASSIUM CHLOR8 ME1 PO; +PRINIVIL20 M1 PO; +PROTONIX40 M1 PO; +TYLENOL80 MG/0.2 PO
--- NOTE | ~2017-05-05 | MR176 ---
[facility] A Service of [facility] RADIOLOGY TEXT RESULTS PATIENT: DONNA VELA LOCATION: [facility] : 54 UNIT #: [id number] AGE: [address]: Donna Valladares PA-C SEX: M ORDER DR: [id number] [place] [id number] O MR#: [id number] Acc #: [id number] NAME: DONNA VELA : 1955 SEX: M STUDY DATE/TIME: 05/05/2017 14:56 UNIT: [facility] ROOM: STUDY DESCRIPTION: MR Thoracic Wo Contrast Attending Physician: Donna Valladares P.A.-C. Referring Physician: Donna Valladares P.A.-C. Ordering Physician: Donna Valladares P.A.-C. Primary Care Physician: No Primary Care Physician MRI CENTER REPORT This report is preliminary unless electronic signature is present. EXAM Thoracic spine MRI without contrast. DATE OF STUDY 05/05/2017 PROCEDURE Routine unenhanced thoracic spine MRI. COMPARISON CT thoracic spine, 04/13/2017; date of this exam 05/05/2017. CLINICAL HISTORY Two-month history of worsening back pain, known chronic spinal compression fracture. FINDINGS Spine alignment is normal. There are compression fractures at T5 and T7. The T7 fracture is clearly chronic, with about 75% to 80% height loss and no marrow edema. The T5 fracture appears likely subacute. There is marrow edema throughout the vertebral body and involving the posterior elements. There is slight bony retropulsion with slight central canal compromise, but no cord compression. There is marrow edema in the pedicles and lamina and even spinous process as well. No definite spinous process fracture is seen even in retrospect on the CT exam. No other fractures are seen and the exam is otherwise unremarkable. IMPRESSION 1. T7 fracture is chronic, but T5 fracture is clearly acute or subacute with marrow edema throughout the vertebral body as well as involving [facility] A Service [facility] RADIOLOGY TEXT RESULTS PATIENT: DONNA VELA LOCATION: [facility] : 54 UNIT #: [id number] AGE: [address]: Donna Valladares PA-C SEX: M ORDER DR: the pedicles, lamina and even spinous process. There is slight bony retropulsion of the T5 posterior cortex contacting the ventral cord, but without true canal stenosis or cord compression and there is no abnormal cord signal. 2. Again there is a chronic compression deformity of T7, but no other fractures are seen and the exam is otherwise unremarkable. Dictated by... Garfield Vallejo M.D. THIS IS AN ELECTRONICALLY VERIFIED REPORT Garfield Vallejo M.D. at 05/09/2017 4:52 PM TEV/pc TD: 05/06/2017 11:06 JOB #: [id number] MRI CENTER REPORT Page 1 of 1
== END | disposition home or self-care (01) ==
LOC: SMRI 14:11
DX: M48.54XD Collapsed vertebra, not elsewhere classified, thoracic region, subsequent encounter for fracture with routine healing (principal)
CPT/HCPCS: 72146

== ENCOUNTER 2017-05-28 17:47 | Inpatient (IN) | payer MEDICARE ==
[~2017-05-28] VITALS: Ht 172.7 cm; Wt 126.8 kg
--- NOTE | ~2017-05-28 | CO ---
Unit #: [id number] #: [id number] Patient: DONNA VELA [id number] [facility]. [place] [address] [facility]. [place], [place] [address] [id number] I MR#: [id number] NAME: DONNA VELA. ROOM: 301 Age: 61 Sex: M Admission Date: 05/28/2017 : 1955 Attending Physician: Bo Tsang M.D. Consultation Date: 05/29/2017 CONSULTATION REPORT REASON FOR CONSULTATION GI bleed, anemia, and acute gastrointestinal blood loss. HISTORY OF PRESENT ILLNESS Mr. Vela is a 61-year-old white gentleman. The patient is examined while his was at the bedside. He has presented with history of vomiting bright red blood as well as history of passing blood per rectum. It is note clear whether this is hematochezia or melena from the patient's description. This all started 3 or 4 days ago and he has had several episodes. The bleeding is painless. The patient is on long-term antiplatelet agents including Plavix. He denies any history of abdominal pain and the fact he is hungry. PAST MEDICAL HISTORY Significant for history of hypertension, coronary artery disease, type 2 diabetes. He also has history of COPD; coronary artery disease, status post PTCA and coronary stent placements; upper GI bleed in October 2016. He has left femoral fracture requiring repair and compression fractures of thoracic spine. ALLERGIES He has no known drug allergies. MEDICATIONS AT HOME Included Plavix, Aldactone, Toprol-XL, Lasix, potassium, Prinivil, Singulair, Lipitor, and DuoNeb. FAMILY HISTORY None of colon, pancreatic cancer, or liver disease. SOCIAL HISTORY He lives at home with his . Never smoked throughout his life and stopped drinking about 7 years ago. REVIEW OF SYSTEMS Detailed review of organ systems is significant for vomiting blood and melena as well as history of near syncope without any blackout. No history of headache, seizures, or chest pain. No history of cough, expectoration, or hemoptysis. No history of dysuria, hematuria, or pyuria. No history of focal seizures or extremity weakness. No history of skin rash, aphthous ulcer in mouth, or reactive arthritis. PHYSICAL EXAMINATION GENERAL: He is alert and oriented, appears comfortable. Unit #: [id number] #: [id number] Patient: DONNA VELA VITAL SIGNS: Stable with a temperature of 98.2, pulse is 88 per minute, respirations 18, and blood pressure is 129/54. He weighs 277 pounds. His baseline weight has been about the same. HEENT: He has mild pallor. No icterus, lymphadenopathy, or peripheral edema. CARDIOVASCULAR: Normal heart sounds. No murmurs on auscultation. LUNGS: Reveals normal breath sounds. Good air entry. ABDOMEN: Soft, obese, and nontender. Liver and spleen are not palpable. Bowel sounds normal. DIAGNOSTIC STUDIES LABORATORY RESULTS: Shows an INR of 1.1. BUN and creatinine of 60 and 1.8, which is above his baseline, but generally normal. Albumin is 3.4. Blood glucose on admission was 331. His admission hemoglobin was 10.1, baseline hemoglobin has been about 12, and hemoglobin today is 8.8. CLINICAL IMPRESSION The patient certainly has an upper gastrointestinal hemorrhage with anemia of acute gastrointestinal blood loss. An upper endoscopy is warranted to be scheduled as soon as practicable, most likely tomorrow. The pros and cons of procedure, potential risks, complications were discussed with the patient and he reassured. Thank you for asking me to see this pleasant gentleman and appreciate the consult. Dictated by... Charlene Gupta/lashonda TD: 05/30/2017 22:01 JOB #: [id number] CC: . CONSULTATION REPORT Page 1 of 1 X Saulo Gil MD X CONSULTATION REPORT
--- NOTE | ~2017-05-28 | HP ---
Unit #: [id number] #: [id number] Patient: DONNA VELA [id number] [address] [address] [id number] E MR#: [id number] NAME: DONNA VELA ROOM: Age: 61 Sex: M Admission Date: 05/28/2017 : 1955 Attending Physician: Lalit Sim M.D. Referring Physician: No Primary Care Physician Primary Care Physician: No Primary Care Physician HISTORY AND PHYSICAL CHIEF COMPLAINT Chief complaint is upper GI bleed with near syncope. HISTORY This pleasant 61-year-old male with essential hypertension, CAD, AODM, is admitted for upper GI bleed with near syncope. The patient states that he was well until five days ago when he developed nausea, and increasing lightheadedness. The lightheadedness worsened over the past 2 days. Today the patient experienced coffee-ground emesis and a large amount of melena, denies abdominal pain with the above. His was bringing him into this emergency department when he had near syncopal episodes with some jerking movements. In the ER his initial blood pressure is 107/70 but current blood pressure is 85/44. The patient's initial hematocrit is 31.2 with a hemoglobin of 10.1. Patient was last admitted to this facility in October for upper GI bleeding. Colonoscopy revealed two polyps which were removed. On EGD he was noted to have a distal erosive esophagitis, with changes of portal hypertensive gastropathy, moderate diffuse erosive duodenitis. He no longer is taking the proton pump inhibitor that he went home on; does take aspirin and Plavix. PAST MEDICAL HISTORY 1. COPD. 2. Essential hypertension. 3. CAD, status post PCI and stent with stenosis after six months. Patient states he does have collaterals. He was last admitted to [facility] in March and a cardiac catheterization was performed. 4. AODM since 2007. 5. Upper GI bleed 10/2016. Please see above details. 6. Compression fractures of the thoracic spine after falling out of bed three months ago. 7. Left femur fracture requiring repair. ALLERGIES No known drug allergies. HOME MEDICATIONS 1. DuoNebs q.4 hours as needed. 2. Lipitor 80 mg daily. 3. Prinivil 20 mg daily. 4. Singulair 10 mg daily. Unit #: [id number] #: [id number] Patient: DONNA VELA 5. Plavix 75 mg daily. 6. Aldactone 25 mg daily. 7. Toprol-XL 100 mg daily. 8. Lasix 40 mg daily. 9. Potassium 8 mEq daily. FAMILY HISTORY Negative for GI disease. SOCIAL HISTORY The patient lives with his . He is a lifelong nonsmoker, stopped drinking alcohol 7 years ago. REVIEW OF SYSTEMS Notable for coffee-ground emesis, melena, dizziness, hypertension, asthma/COPD, CAD, diabetes, chronic back pain, abovementioned surgeries. All other systems were reviewed and otherwise negative. PHYSICAL EXAMINATION GENERAL: Pleasant, pale, obese 61-year-old male currently in no acute distress. VITAL SIGNS: Temperature 97.7. Pulse 97. Respirations 16. Initial blood pressure 107/70. Current blood pressure is 85/44. O2 saturation 94% on room air. HEENT EXAMINATION: Eyes PERRLA, extraocular muscles are intact. Pharynx is benign. NECK: Supple, without adenopathy or thyromegaly. CHEST: Is clear. CARDIAC: Normal S1 and S2, very soft systolic murmur. ABDOMEN: Bowel sounds are present. No hepatosplenomegaly, tenderness or masses. EXTREMITIES: Without C, C or E. Pedal pulses are diminished. No ulcers on the feet. NEUROLOGIC EXAM: Patient is awake, alert, oriented. Cranial nerves are intact. He has equal strength throughout. DIAGNOSTIC STUDIES ADMISSION LABS: Hematocrit is 31.2, normal MCV, white blood count is 11.9, normal platelet count. SMA-12: Glucose 331, BUN 60, creatinine 1.8, up from a BUN of 11, creatinine of 1 in March. CO2 is 20, albumin is 3.4. BHOB 0.16. Cardiac markers are negative. IMAGING: Acute abdominal series: A few air-fluid levels in the upper abdomen. Osteopenia. Head CT shows no acute disease. CARDIOVASCULAR: EKG sinus rhythm, rate 100, left axis deviation was noted. ASSESSMENT 1. Upper gastrointestinal bleed with near syncope and hypotension. 2. Acute kidney injury secondary to upper gastrointestinal bleeding. 3. Coronary artery disease, status post percutaneous coronary intervention and stent. 4. Essential hypertension with low blood pressure currently. 5. Adult-onset diabetes mellitus with hypoglycemia. 6. Chronic obstructive pulmonary disease. Unit #: [id number] #: [id number] Patient: DONNA VELA PLANS 1. Transfuse one unit of packed red blood cells given symptomatic anemia with low blood pressure and near syncope. 2. IV fluids, obtain serial H and H, start proton pump inhibitor drip. Patient received Protonix in the ER. GI to see in consultation. 3. Obtain urinalysis, repeat labs in the morning. 4. Hold diuretics, DEEJAY inhibitor for now. Will continue metoprolol as blood pressure is low. 5. SCDs for DVT prophylaxis. 6. Obtain recent records from [facility]. Dictated by Faiza Yu M.D. AML/cf TD: 05/28/2017 21:32 JOB #: [id number] CC: Johan Mckeon M.D. HISTORY AND PHYSICAL Page 1 of 1 X Faiza Yu MD HISTORY AND PHYSICAL
--- NOTE | ~2017-05-28 | CT71 ---
[facility] A Service of [facility] RADIOLOGY TEXT RESULTS PATIENT: DONNA VELA LOCATION: [facility] : 54 UNIT #: [id number] AGE: [address]: Bo Tsang MD SEX: M ORDER DR: [id number] [place] [id number] [facility]. [place], [place] [address] [id number] I MR#: [id number] Acc #: [id number] NAME: DONNA VELA. : 1955 SEX: M STUDY DATE/TIME: 05/28/2017 19:21 [facility] STUDY DESCRIPTION: CT Head Wo Contrast Attending Physician: Bo Tsang M.D. Referring Physician: No Primary Care Physician Ordering Physician: Lalit Sim M.D. Primary Care Physician: No Primary Care Physician MEDICAL IMAGING REPORT This report is preliminary unless electronic signature is present EXAM CT head without contrast, 05/28/2017. HISTORY 61-year-old male with confusion and dizziness today. Seizure today per . COMPARISON CT head, 08/13/2011. TECHNIQUE Routine unenhanced axial images performed through the brain. This CT exam was performed with one or more of the following radiation dose reduction techniques: automatic exposure control, adjustment of mA and/or kV according to patient size, and iterative reconstruction. FINDINGS No hemorrhage, acute infarction, mass lesion, or abnormal extraaxial fluid collection. No midline shift or focal mass effect. Ventricular system is normal in size and configuration. No acute bony abnormality. Visualized paranasal sinuses and mastoid air cells are clear. IMPRESSION No acute intracranial abnormality. Dictated by... Romain Starkey M.D. THIS IS AN ELECTRONICALLY VERIFIED REPORT Romain Starkey M.D. at 05/29/2017 4:10 PM Luana TD: 05/29/2017 10:16 [facility] A Service of [facility] RADIOLOGY TEXT RESULTS PATIENT: DONNA VELA LOCATION: [facility] 01 : 53 UNIT #: [id number] AGE: [address]: Bo Tsang MD SEX: M ORDER DR: JOB #: [id number] MEDICAL IMAGING REPORT Page 1 of 1 COPY
--- NOTE | ~2017-05-28 | OR ---
Unit #: [id number] #: [id number] Patient: DONNA VELA [id number] [address] [place], [place] [address] [id number] I MR#: [id number] NAME: DONNA VELA. ROOM: 301 Date of Procedure: 05/30/2017 Admission Date: 05/28/2017 Surgeon: Saulo Gil M.D. : 1955 Attending Physician: Bo Tsang M.D. OPERATIVE REPORT PREOPERATIVE DIAGNOSIS Upper gastrointestinal bleed. PROCEDURES PERFORMED 1. Upper gastrointestinal endoscopy and biopsy. 2. Upper gastrointestinal endoscopy and hemorrhage control. POSTOPERATIVE DIAGNOSES 1. The patient had a posterior gastric ulcer in the antrum. This was about 1.8 cm in size with a visible vessel and grayish white ulcer base. In addition, the patient has moderately severe prepyloric antral erosive gastritis in the form of erosions and erythema in the antral area. 2. Rest examination of the third part of duodenum was normal. A biopsy obtained from the antrum for CLOtest. In addition, the visible vessel was ablated using coagulation with heater probe. RECOMMENDATIONS 1. The patient can be switched to oral Protonix 40 mg p.o. b.i.d. 2. He can be discharged to home from GI standpoint. 3. He will require a repeat upper endoscopy in 12 weeks' time and outpatient appointment, the latter is being scheduled. SEDATION USED MAC. DESCRIPTION OF PROCEDURE Following detailed explanation of the potential risks and complications of an upper endoscopy, namely perforation, bleeding, and complications related to sedation, the patient was brought to GI lab and laid in the left lateral decubitus position. Lubricated tip of the Olympus video upper endoscope was passed through the bite block into the proximal esophagus under direct vision. The entire esophageal mucosa was examined and appeared normal. Z-line was nicely demarcated, there being no esophagitis or hiatus hernia. The scope was then advanced into the gastric cavity, and the latter was insufflated. Mucosa of the fundus, body, and antrum examined. The patient was noted to have posterior antral gastric ulcer about 1.8 cm in size with a visible vessel and grayish white ulcer base. In addition, it was moderate antral gastritis in the adjacent mucosa. Pylorus was intubated with visualization of the normal duodenal bulb and second and third part of the duodenum. Upon withdrawal and retroflexion, incisura, cardia, and greater curve examined, and a biopsy obtained from the antrum for CLOtest. The scope was then withdrawn in the Unit #: [id number] #: [id number] Patient: DONNA VELA distal esophagus. The entire esophageal mucosa was examined all the way up to pharynx, and no additional findings noted. The entire esophageal mucosa was examined all the way up to pharynx. No additional findings noted. The patient tolerated the procedure without any postprocedure complications. Dictated by... Charlene Gupta/lashonda TD: 05/31/2017 05:23 JOB #: [id number] OPERATIVE REPORT Page 1 of 1 X Saulo Gil MD X PROCEDURE OPERATIVE NOTE
--- NOTE | ~2017-05-28 | OR ---
Unit #: [id number] #: [id number] Patient: DONNA VELA [id number] [place] [address] [facility]. [place], [place] [address] [id number] I MR#: [id number] NAME: DONNA VELA. ROOM: 301 Date of Procedure: 05/30/2017 Admission Date: 05/28/2017 Surgeon: Saulo Gil M.D. : 1955 Attending Physician: Bo Tsang M.D. OPERATIVE REPORT PRIMARY CARE PHYSICIAN None. PREOPERATIVE DIAGNOSIS Upper gastrointestinal bleed. PROCEDURES PERFORMED 1. Upper gastrointestinal endoscopy and biopsy. 2. Upper gastrointestinal endoscopy and hemorrhage control. POSTOPERATIVE DIAGNOSES 1. The patient had a large posterior gastric ulcer. This had a grayish white ulcer base along with a visible vessel in the middle. The latter was ablated using coaptive coagulation with heater probe application. 2. Moderate prepyloric antral gastritis. A biopsy was obtained from the antrum for CLOtest. 3. Rest of the examination up to third part of duodenum was normal. RECOMMENDATIONS The patient clearly had bleeding from the gastric ulcer, which is normal since resolved. He can be started on oral Protonix and can be started on clear liquid diet, which can be advanced as tolerated. He will require a repeat endoscopy in 3 months to document complete healing of the ulcer. SEDATION USED MAC. DESCRIPTION OF PROCEDURE Following detailed explanation of the potential risks and complications of an upper endoscopy, namely perforation, bleeding, and complications related to sedation, the patient was brought to GI lab, laid in the left lateral decubitus position. Lubricated tip of the Olympus video upper endoscope was passed through bite block into the proximal esophagus under direct vision. The entire esophageal mucosa was examined and appeared normal. Z-line was nicely demarcated, there being no esophagitis or hiatus hernia. The scope was then advanced into the gastric cavity and the latter was insufflated. Mucosa of the fundus, body, and antrum were examined and the patient was noted to have 1.8 cm posterior gastric ulcer. This was in the prepyloric antral area. There was a visible vessel in the middle of the ulcer base. No active bleeding was noted. There was also moderate prepyloric antral erosive gastritis. Pylorus was intubated with Unit #: [id number] #: [id number] Patient: DONNA VELA visualization of normal duodenal bulb, second and third part duodenum. Upon withdrawal and retroflexion, incisura, cardia, and greater curve examined and a biopsy was obtained from the antrum for CLOtest. The scope was then withdrawn. We then proceeded with coaptive coagulation of the visible vessel and the base of the ulcer. This was done using heater probe application. Excellent coagulum was found and photodocumentation was obtained. The scope was withdrawn in the distal esophagus. The entire esophageal mucosa was examined all the way up to pharynx and no additional findings noted. The patient tolerated the procedure without any postprocedure complications. Dictated by... Charlene Gupta/lashonda TD: 05/31/2017 09:38 JOB #: [id number] OPERATIVE REPORT Page 1 of 1 X Saulo Gil MD X PROCEDURE OPERATIVE NOTE
--- NOTE | ~2017-05-28 | EKG ---
PATIENT: DONNA VELA UNIT #: [id number] Ventricular Rate: 100 BPM Atrial Rate: 100 BPM P-R Interval: 120 ms QRS Duration: 96 ms Q-T Interval: 358 ms QTC Calculation(Bezet): 461 ms P [place]: 14 degrees Calculated R [place]: -42 degrees Calculated T [place]: 58 degrees Diagnosis Line: Normal sinus rhythm Diagnosis Line: Left axis deviation Diagnosis Line: Abnormal ECG Diagnosis Line: When compared with ECG of 13-NOV-2016 12:12, Diagnosis Line: Premature ventricular complexes are no longer Diagnosis Line: Present Diagnosis Line: Confirmed by JOSSELINE SCHAEFFER MD ([id number]) on Diagnosis Line: 05/30/2017 10:51:06 AM INTERPRETING MD: MAKSIM BAKER
--- NOTE | ~2017-05-28 | CR72 ---
[facility] A Service of [facility] & [facility] RADIOLOGY TEXT RESULTS PATIENT: DONNA VELA LOCATION: [facility] 301- : 53 UNIT #: [id number] AGE: [address]: Bo Tsang MD SEX: M ORDER DR: [id number] [place] [id number] [facility]. [place], [place] [address] [id number] I MR#: [id number] Acc #: [id number] NAME: DONNA VELA. : 1955 SEX: M STUDY DATE/TIME: 05/30/2017 6:26 [facility] RO[facility]: [facility] STUDY DESCRIPTION: CR Chest Single View Portable Attending Physician: Bo Tsang M.D. Referring Physician: No Primary Care Physician Ordering Physician: Bo Tsang M.D. Primary Care Physician: No Primary Care Physician MEDICAL IMAGING REPORT This report is preliminary unless electronic signature is present EXAM AP view of the chest. COMPARISON 2 views of the chest dated April 13, 2017. Other chest radiograph dated August 13, 2011 and September 07, 2010. INDICATION 61-year-old male with dyspnea today. History of hypertension and CHF. FINDINGS Right paratracheal and right hilar calcified lymph nodes are again noted. There is poor inspiratory effort with crowding of central bronchovascular structures. When allowing for portable technique and low lung volumes, cardiomediastinal silhouette is likely within normal limits. No evidence of pneumothorax or pleural effusion. Opacities appear somewhat asymmetric in the right lung base, which may reflect atelectasis or developing pneumonia. IMPRESSION Poor inspiratory effort with somewhat asymmetric increased right basilar opacities, possibly perhaps reflecting atelectasis. Correlation to exclude signs of developing pneumonia recommended. No pleural effusion. Cardiomediastinal silhouette is within normal limits for portable technique and low lung volumes. Dictated by... Rasheed Vallejo M.D. THIS IS AN ELECTRONICALLY VERIFIED REPORT Rasheed Vallejo M.D. at 05/31/2017 9:18 PM BLM/gz STS. [facility] A Service of [facility] & [facility] / [facility] RADIOLOGY TEXT RESULTS PATIENT: DONNA VELA LOCATION: [facility] 301-01 : [birth year] UNIT #: [id number] AGE: [address]: Bo Tsang MD SEX: M ORDER DR: TD: 05/30/2017 09:17 JOB #: [id number] MEDICAL IMAGING REPORT Page 1 of 1 COPY
--- NOTE | ~2017-05-28 | BMI ---
[facility] Nutrition Therapy DATE: 05/29/17 Patient: DONNA VELA Physician: HAN Address: [address] Room/Bed: [address] [place] [address], Zip: [place] [address] Admit Date: 05/28/17 Date of : 53 Height: 5 8 Weight: 277 126 HIGH BMI NOTE: DX: 61 Y.O. MALE ADMITTED FOR UPPER GI BLEED ANTHROPOMETRICS: 5'8", WT: 277# (126 KG), BMI: 42.1 DIET: NPO RECOMMENDATIONS: 1. ONCE MEDICALLY FEASIBLE, ADVANCE DIET INDICATED TO CONSISTENT CARBOHYDRATE + HEALTHY HEART TO PROMOTE GRADUAL WEIGHT LOSS TOWARDS HEALTHY BMI (19.0-25.0) OR +/-10%IBW RD WILL F/U PER PROTOCOL Respectfully, GABRIEL MOMIN MS, RD, LD [facility] Nutrition[facility] cc: client file
--- NOTE | ~2017-05-28 | DS ---
Unit #: [id number] #: [id number] Patient: DONNA VELA [id number] [address] [id number] I MR#: [id number] NAME: DONNA VELA. ROOM: 301 Age: 61 Sex: M Admission Date: 05/28/2017 : 1955 Discharge Date: 05/31/2017 Attending Physician: Bo Tsang M.D. Referring Physician: Primary Care Physician No Primary Care Physician: Primary Care Physician No DISCHARGE SUMMARY FINAL DIAGNOSES 1. GI bleeding. 2. Resolving gastritis. SECONDARY DIAGNOSES 1. Diabetes mellitus. 2. Acute blood loss anemia. 3. Hyperkalemia. 4. Acute kidney injury. 5. Diabetes mellitus, type 2. 6. Systolic heart failure. 7. Chronic obstructive pulmonary disease. 8. Spinal compression fracture. 9. Resolving gastroenteritis. PROCEDURES He had an EGD, which showed gastritis. REFINISH TECHNICIAN Dr. Saulo Gil HOSPITAL COURSE Zsuuz-nsv-oell-old male who basically presented with, what looked like, upper GI bleed with near syncope. He was seen and evaluated through the ER. He had a history of hypertension, (1) disease, and diabetes. He was worked up in the hospital and underwent an EGD. He was seen by Dr. Gil and an area of bleeding ulcer was noted, and some gastritis. The plan was for him to be discharged on Protonix 40 mg p.o. b.i.d. with outpatient followup. He was evaluated and deemed stable for discharge. He was discharged in stable condition today. Acute kidney injury today at discharge creatinine is 1.1. MEDICATIONS ON DISCHARGE Include: 1. Ipratropium/albuterol 3 mL inhalation q.4h as needed 2. Tylenol 650 mg p.o. q.4 hourly p.r.n. 3. Lipitor 80 mg p.o. daily 4. Metoprolol 100 mg p.o. daily per home dose 5. Lasix 40 mg p.o. daily 6. Prinivil 20 mg p.o. daily 7. Levemir 10 units subcu at bedtime 8. Singulair 10 mg p.o. daily 9. Plavix 75 mg p.o. daily 10. Aldactone 25 mg p.o. daily Unit #: [id number] #: [id number] Patient: DONNA VELA 11. Protonix 40 mg p.o. b.i.d. 12. Potassium 8 mEq p.o. daily FOLLOWUP 1. Follow up with me in the office in 3 to 5 days. 2. Will repeat his CBC, BMP, in about a week. Time spent coordinating discharge at this time 32 minutes. Dictated by... Charlene Torres TD: 06/01/2017 07:21 JOB #: [id number] CC: [phone] DISCHARGE SUMMARY Page 1 of 1 X Nelly Redd MD X DISCHARGE SUMMARY
--- NOTE | ~2017-05-28 | CR2 ---
[facility] A Service of [facility] RADIOLOGY TEXT RESULTS PATIENT: DONNA VELA LOCATION: [facility] 301- : 53 UNIT #: [id number] AGE: [address]: Bo Tsang MD SEX: M ORDER DR: [id number] [place] [id number] [facility]. [place], [place] [address] [id number] I MR#: [id number] Acc #: [id number] NAME: DONNA VELA. : 1955 SEX: M STUDY DATE/TIME: 05/28/2017 18:29 UNIT: A U ROOM: [facility] STUDY DESCRIPTION: CR Abdomen Acute Series Attending Physician: Bo Tsang M.D. Referring Physician: No Primary Care Physician Ordering Physician: Lalit Sim M.D. Primary Care Physician: No Primary Care Physician MEDICAL IMAGING REPORT This report is preliminary unless electronic signature is present EXAM Abdominal series 05/28/2017. INDICATIONS 61-year-old male with nausea, vomiting, diarrhea and abdominal pain since last night. Hypertension. GI bleed. TECHNIQUE Frontal chest and upright supine views of the abdomen were performed. COMPARISON Chest x-ray 04/13/2017. FINDINGS Lung apices partially excluded from view. Cardiac silhouette within normal limits. Vascularity is normal. There is old healed granulomatous disease. Lungs are otherwise clear. Upright view demonstrates no free air. Relatively gasless abdomen with air-fluid levels in the upper abdomen that are nonspecific. No dilated air-filled loops of bowel are seen. This may reflect fluid-filled loops of bowel in the abdomen and pelvis and should be correlated clinically. Granulomatous calcifications in the spleen. Bones are osteoporotic. The patient is status post fracture repair of the left femur. IMPRESSION 1. Calcified granulomatous changes, otherwise negative frontal chest. 2. No free air. 3. Relatively gasless abdomen with a few air-fluid levels within bowel in the upper abdomen. This overall may reflect fluid-filled loops of bowel in the abdomen and pelvis. 4. Osteopenia and postop changes of fracture repair of the left femur. [facility] A Service of [facility] RADIOLOGY TEXT RESULTS PATIENT: DONNA VELA LOCATION: [facility] 301-01 : [birth year] UNIT #: [id number] AGE: [address]: Bo Tsang MD SEX: M ORDER DR: Dictated by... Thomas Davila M.D. THIS IS AN ELECTRONICALLY VERIFIED REPORT Thomas Davila M.D. at 05/29/2017 11:20 AM [place] TD: 05/29/2017 09:33 JOB #: [id number] MEDICAL IMAGING REPORT Page 1 of 1 COPY
[~2017-05-28 17:47] MED LIST changes: -ALDACTONE25 MG PO; -FUROSEMIDE40 MG PO; -LEVEMIR100 UNITS/ SUBQ; -MONTELUKAST SOD10 MG PO; -POTASSIUM CHLOR8 ME1 PO; -PRINIVIL20 M1 PO; -PROTONIX40 M1 PO; -TYLENOL80 MG/0.2 PO
[2017-05-28] MEDS ORDERED: ATORVASTATIN CA80 MG PO (18:18)
[2017-05-28] MEDS ORDERED: MONTELUKAST SOD10 MG PO (18:19)
[2017-05-28] MEDS ORDERED: PRINIVIL20 M1 PO (18:19)
[2017-05-28] MEDS ORDERED: ALDACTONE25 MG PO (18:19)
[2017-05-28] MEDS ORDERED: CLOPIDOGREL75 MG PO (18:19)
[2017-05-28] MEDS ORDERED: METOPROLOL SUC100 MG PO (18:20)
[2017-05-28] MEDS ORDERED: FUROSEMIDE40 MG PO (18:20)
[2017-05-28] MEDS ORDERED: POTASSIUM CHLOR8 ME1 PO (18:20)
[2017-05-28 18:52] LABS: POC - CKMB <1.0 ng/mL (0.0-7.9); POC - TROPONIN <0.05 ng/mL (<=0.05)
[2017-05-28 18:58] LABS: BASOPHIL# 0.1 X10e3 (0-0.3); BASOPHIL% 0.9 % (0-2.5); EOSINOPHIL# 0.1 X10e3 (0-0.7); EOSINOPHIL% 0.8 % (0.0-7.0); HEMATOCRIT 31.2 % (38.0-50.0); HEMOGLOBIN 10.1 gm/dL (13.0-16.0); LYMPHOCYTE% 25.2 % (17.0-45.0); MEAN CELL VOLUME 86.5 FL (83-96); MEAN CORPUSCULAR HEMOGLOBIN 28.1 PG (28-34); MEAN CORPUSCULAR HGB CONC 32.5 g/dL (30-36); MEAN PLATELET VOLUME 8.7 FL (6.5-11.5); MONOCYTE# 0.7 X10e3 (0-1.0); MONOCYTE% 5.8 % (3.0-12.0); NEUTROPHIL% 67.3 % (40-75); PLATELET COUNT 301 X10e3 (140-420); RED CELL DISTRIBUTION WIDTH 16.9 % (11.0-15.5); WHITE BLOOD COUNT 11.9 X10e3 (4.0-10.5)
[2017-05-28 19:00] LABS: DIFF IND NO
[2017-05-28 19:13] LABS: INR 1.1; PARTIAL THROMBOPLASTIN TIME 21.2 SECONDS (23.5-31.3); PROTHROMBIN TIME (PATIENT) 11.4 SECONDS (10.0-11.7)
[2017-05-28 19:24] LABS: ALBUMIN SERUM 3.4 g/dL (3.5-5.0); BILIRUBIN, DIRECT 0.1 mg/dL (0.0-0.2); BILIRUBIN,INDIRECT 0.5 mg/dL (0.0-0.9); BILIRUBIN,TOTAL 0.6 mg/dL (0.2-2.0); BUN/CREATININE RATIO 33.33; CALCIUM SERUM 9.6 mg/dL (8.4-10.2); CREATININE SERUM 1.8 mg/dL (0.6-1.4); GLOM FILT RATE Estimated 39.5 mL/min (>60); POTASSIUM 4.8 mmol/L (3.5-5.1); PROTEIN TOTAL SERUM 7.1 g/dL (6.0-8.3)
[2017-05-28 20:08] LABS: POC - CKMB <1.0 ng/mL (0.0-7.9); POC - TROPONIN <0.05 ng/mL (<=0.05)
[2017-05-29 02:51] LABS: URINE SOURCE CLEAN CATCH
[2017-05-29 02:59] LABS: URINE APPEARANCE CLEAR; URINE BILIRUBIN NEG (NEG); URINE BLOOD NEG (NEG); URINE COLOR YELLOW; URINE GLUCOSE 100 MG/DL (NEG); URINE KETONE NEG (NEG); URINE LEUKOCYTE ESTERASE NEG (NEG); URINE NITRATE NEG (NEG); URINE PROTEIN NEG (NEG); URINE SPECIFIC GRAVITY 1.019 (1.003-1.035); URINE UROBILINOGEN 0.2 MG/DL (NEG)
[2017-05-29 03:11] LABS: CULTURE INDICATED? NO
[2017-05-29 07:09] LABS: BUN/CREATININE RATIO 36.47; CALCIUM SERUM 8.8 mg/dL (8.4-10.2); CREATININE SERUM 1.7 mg/dL (0.6-1.4); GLOM FILT RATE Estimated 42.3 mL/min (>60); POTASSIUM 5.3 mmol/L (3.5-5.1)
[2017-05-29 08:50] LABS: BASOPHIL# 0.1 X10e3 (0-0.3); BASOPHIL% 0.4 % (0-2.5); HEMATOCRIT 28.4 % (38.0-50.0); HEMOGLOBIN 9.3 gm/dL (13.0-16.0); LYMPHOCYTE# 2.4 X10e3 (1.0-3.5); LYMPHOCYTE% 18.9 % (17.0-45.0); MEAN CELL VOLUME 88.1 FL (83-96); MEAN CORPUSCULAR HEMOGLOBIN 28.8 PG (28-34); MEAN CORPUSCULAR HGB CONC 32.7 g/dL (30-36); MEAN PLATELET VOLUME 8.7 FL (6.5-11.5); MONOCYTE# 0.8 X10e3 (0-1.0); MONOCYTE% 6.6 % (3.0-12.0); NEUTROPHIL# 9.4 X10e3 (1.5-7.1); NEUTROPHIL% 74.1 % (40-75); PLATELET COUNT 202 X10e3 (140-420); RED BLOOD COUNT 3.23 X10e (3.90-5.60); RED CELL DISTRIBUTION WIDTH 17.4 % (11.0-15.5); WHITE BLOOD COUNT 12.7 X10e3 (4.0-10.5)
[2017-05-29 08:53] LABS: DIFF IND NO
[2017-05-29 10:20] LABS: HEMATOCRIT 28.7 % (38.0-50.0); HEMOGLOBIN 9.3 gm/dL (13.0-16.0)
[2017-05-29 16:13] LABS: HEMATOCRIT 28.8 % (38.0-50.0); HEMOGLOBIN 9.4 gm/dL (13.0-16.0)
[2017-05-29 16:35] LABS: BUN/CREATININE RATIO 39.28; CALCIUM SERUM 8.7 mg/dL (8.4-10.2); CREATININE SERUM 1.4 mg/dL (0.6-1.4); GLOM FILT RATE Estimated 53.5 mL/min (>60); POTASSIUM 4.7 mmol/L (3.5-5.1)
[2017-05-29 22:25] LABS: HEMOGLOBIN 8.8 gm/dL (13.0-16.0)
[2017-05-30 04:14] LABS: HEMOGLOBIN 9.1 gm/dL (13.0-16.0); MEAN CELL VOLUME 87.6 FL (83-96); MEAN CORPUSCULAR HEMOGLOBIN 29.4 PG (28-34); MEAN CORPUSCULAR HGB CONC 33.6 g/dL (30-36); MEAN PLATELET VOLUME 8.1 FL (6.5-11.5); RED BLOOD COUNT 3.08 X10e (3.90-5.60); RED CELL DISTRIBUTION WIDTH 17.3 % (11.0-15.5); WHITE BLOOD COUNT 8.6 X10e3 (4.0-10.5)
[2017-05-30 04:34] LABS: BUN/CREATININE RATIO 30.9; CALCIUM SERUM 8.7 mg/dL (8.4-10.2); CREATININE SERUM 1.1 mg/dL (0.6-1.4); GLOM FILT RATE Estimated 71.6 mL/min (>60); POTASSIUM 4.5 mmol/L (3.5-5.1)
[2017-05-31 05:05] LABS: HEMATOCRIT 25.2 % (38.0-50.0); HEMOGLOBIN 8.2 gm/dL (13.0-16.0)
[2017-05-31] MEDS ORDERED: PROTONIX40 M1 PO (12:41)
[2017-05-31] MEDS ORDERED: LEVEMIR100 UNITS/ SUBQ (12:42)
[2017-05-31] MEDS ORDERED: TYLENOL80 MG/0.2 PO (12:43)
== END 2017-05-31 13:58 | disposition home or self-care (01) | DRG 378 ==
LOC: CED 17:47 → CEDOF 21:00 → C3A PCU 21:00 → CEDOF 21:00 → CED 21:00 → CEDOF 21:10 → C3A PCU 21:10
PROVIDERS: Emergency Medicine; Internal Medicine; Internal Medicine Gastroenterology
PROC: 30233N1 Transfusion of Nonautologous Red Blood Cells into Peripheral Vein, Percutaneous Approach (ICD-10-PCS; 2017-05-28)
PROC: 0DB68ZX Excision of Stomach, Via Natural or Artificial Opening Endoscopic, Diagnostic (ICD-10-PCS; principal; 2017-05-30 11:47)
PROC: 0W3P8ZZ Control Bleeding in Gastrointestinal Tract, Via Natural or Artificial Opening Endoscopic (ICD-10-PCS; 2017-05-30 11:47)
DX: K25.4 Chronic or unspecified gastric ulcer with hemorrhage (principal); N17.9 Acute kidney failure, unspecified; I50.20 Unspecified systolic (congestive) heart failure; I95.9 Hypotension, unspecified; E11.649 Type 2 diabetes mellitus with hypoglycemia without coma; E87.5 Hyperkalemia; D62 Acute posthemorrhagic anemia; J98.11 Atelectasis; I25.10 Atherosclerotic heart disease of native coronary artery without angina pectoris; I10 Essential (primary) hypertension; J44.9 Chronic obstructive pulmonary disease, unspecified; S22.009D Unspecified fracture of unspecified thoracic vertebra, subsequent encounter for fracture with routine healing; R55 Syncope and collapse; Z95.5 Presence of coronary angioplasty implant and graft; A08.4 Viral intestinal infection, unspecified; K29.70 Gastritis, unspecified, without bleeding
CPT/HCPCS: 36415; 36430; 70450; 71010; 74022; 80048; 80076; 81003; 82010; 82553; 82947; 83036; 83690; 84484; 85014; 85018; 85025; 85027; 85610; 85730; 86850; 86900; 86901; 86923; 87077; 93005; 94760; 96361; 96374; 96375; 99291; C9113; J1815; J2405; P9016